=== PATIENT | female | born 1960 | race Caucasian/White ===

== ENCOUNTER 2017-03-17 09:08 | Emergency (ER) | payer BC ==
[~2017-03-17] VITALS: Ht 167.6 cm; Wt 102.1 kg
[2017-03-17] MEDS ORDERED: CLEOCIN HCL300 MG PO (09:24)
[2017-03-17] MEDS ORDERED: PRADAXA150 MG PO (09:25)
[2017-03-17] MEDS ORDERED: DILAUDID 4 MG TA4 M1 PO (09:49)
[2017-03-17] MEDS ORDERED: FENTANYL PA25 MCG/HR TRANSDERM (09:49)
[2017-03-17] MEDS ORDERED: ROBAXIN 750 MG750 M1 PO (09:50)
[2017-03-17] MEDS ORDERED: IMITREX100 MG PO (09:50)
[2017-03-17] MEDS ORDERED: MIRAPEX0.5 MG PO (09:51)
[2017-03-17] MEDS ORDERED: PREDNISONE 10 M10 MG PO (10:10)
[2017-03-17] MEDS ORDERED: ZANAFLEX4 MG PO (10:12)
[2017-03-17 10:23] VITALS: BP 145/76
== END 2017-03-17 10:25 | disposition home or self-care (01) ==
LOC: ER 09:08
DX: M26.623 Arthralgia of bilateral temporomandibular joint (principal); K00.7 Teething syndrome; Z86.711 Personal history of pulmonary embolism; G43.909 Migraine, unspecified, not intractable, without status migrainosus; Z88.8 Allergy status to other drugs, medicaments and biological substances; Z88.0 Allergy status to penicillin; Z88.2 Allergy status to sulfonamides; Z88.1 Allergy status to other antibiotic agents